=== PATIENT | female | born 1950 | race Caucasian/White ===

== ENCOUNTER → 2023-07-31 06:48 | Outpatient (REF) | payer MEDICARE, BC, SELFPAY | LOC: MRI 06:48 | PROVIDERS: ATTENDING PHYSICIAN Internal Medicine Cardiovascular Disease; FAMILY PHYSICIAN Family Medicine | DX: G45.9 Transient cerebral ischemic attack, unspecified (principal) | CPT/HCPCS: 70551 ==

== ENCOUNTER → 2023-09-01 15:01 | Outpatient (REF) | payer MEDICARE, BC, SELFPAY | LOC: RAD 15:01 | PROVIDERS: ATTENDING PHYSICIAN Internal Medicine Cardiovascular Disease; FAMILY PHYSICIAN Family Medicine | DX: G45.9 Transient cerebral ischemic attack, unspecified (principal) | CPT/HCPCS: 93880 ==

== ENCOUNTER 2023-11-22 19:45 | Emergency (ER) | payer MEDICARE, BC, SELFPAY ==
[2023-11-22] VITALS (8 sets, daily range): BP systolic 119–138; BP diastolic 67–75; PULSE 81–89; BMI 27.3
[2023-11-22 20:09] LABS: % Basophils 0.5 % (0-2); % Eosinophils 1.3 % (0-6); % Immature Granulocytes 0.3 % (0-0.5); % Lymphocytes 14.7 % (20.5-51.1); % Monocytes 11.1 % (1.7-9.3); % Neutrophils 72.1 % (42.2-75.2); Absolute Basophils 0.1 10^3/uL (0-0.2); Absolute Eosinophils 0.1 10^3/uL (0-0.7); Absolute Lymphocytes 1.5 10^3/uL (1.2-3.4); Absolute Monocytes 1.1 10^3/uL (0.1-0.6); Absolute Neutrophils 7.1 10^3/uL (1.4-6.5); Hematocrit 40.6 % (37.0-47.0); Hemoglobin 13.6 g/dL (12.0-16.0); Mean Corp Hgb Conc. 33.5 g/dL (33.0-37.0); Mean Corpuscular Hgb 30.9 pg (27.0-31.0); Mean Corpuscular Volume 92.3 fL (81.0-99.0); Mean Platelet Volume 11.3 fL (7.4-10.4); Nucleated Red Blood Cells % 0 %; Platelet Count 194 10^3/uL (130-400); Red Cell Dist. Width 13.4 % (11.5-14.5); White Blood Cell Count 9.9 10^3/uL (4.8-10.8)
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
[2023-11-22] MEDS: NSS 1000 IV (20:20)
[2023-11-22 20:33] LABS: ALT (SGPT) 31 U/L (0-35); AST (SGOT) 28 U/L (14-36); Albumin 4.2 g/dl (3.5-5.0); Alkaline Phosphatase 87 U/L (38-126); Blood Urea Nitrogen 12 mg/dl (7-17); Calcium 9.3 mg/dl (8.4-10.2); Carbon Dioxide 25 mmol/L (22-30); Chloride 103 mmol/L (98-107); Estimated Creatinine Clearance 62 ml/min; Glucose 123 mg/dl (70-99); Potassium 3.6 mmol/L (3.5-5.1); Sodium 138 mmol/L (135-145); Total Bilirubin 0.5 mg/dl (0.2-1.3); Total Protein 6.8 g/dl (6.3-8.2); eGFR > 60.00
[2023-11-22 20:52] LABS: Troponin I < 0.012 ng/ml
[2023-11-22] MEDS: CILOXAN 0.3% OPHTHALMIC SOLUTION 1 DROP OPHTH (22:06)
== END 2023-11-22 22:11 | disposition home or self-care (01) ==
LOC: EMR 19:45
PROVIDERS: Clinical Nurse Specialist Family Health; EMERGENCY PHYSICIAN Emergency Medicine; FAMILY PHYSICIAN Family Medicine
DX: R55 Syncope and collapse (principal); H10.9 Unspecified conjunctivitis; J45.909 Unspecified asthma, uncomplicated; E78.00 Pure hypercholesterolemia, unspecified; E03.9 Hypothyroidism, unspecified; E06.3 Autoimmune thyroiditis; I73.00 Raynaud's syndrome without gangrene
CPT/HCPCS: 99283; 96360; 80053; 84484; 85025; 93005

== ENCOUNTER → 2024-02-04 10:31 | Outpatient (REF) | payer MEDICARE, BC, SELFPAY | LOC: HWWDC 10:31 | PROVIDERS: ATTENDING PHYSICIAN Nurse Practitioner Adult Health; FAMILY PHYSICIAN Family Medicine; REFERRING PHYSICIAN Internal Medicine | DX: Z12.31 Encounter for screening mammogram for malignant neoplasm of breast (principal); R94.2 Abnormal results of pulmonary function studies | CPT/HCPCS: 71046; 77063; 77067 ==

== ENCOUNTER → 2025-02-06 09:47 | Outpatient (REF) | payer MEDICARE, BC, SELFPAY | LOC: HWWDC 09:47 | PROVIDERS: ATTENDING PHYSICIAN Nurse Practitioner Adult Health; FAMILY PHYSICIAN Family Medicine | DX: Z12.31 Encounter for screening mammogram for malignant neoplasm of breast (principal) | CPT/HCPCS: 77063; 77067 ==